=== PATIENT | female | born 1970 | race Caucasian/White ===

== ENCOUNTER 2018-12-29 08:51 | Emergency (ER) | payer OTHER, SELFPAY ==
[2018-12-29 09:10] VITALS: BP 121/77; PULSE 86; RESP 13; TEMP 37; O2SAT 97
[2018-12-29 09:18] VITALS: BP 121/77; PULSE 86; RESP 13; TEMP 37; O2SAT 97
--- NOTE | 2018-12-29 09:31 | ED_ITS ---
HPI - URI/Sore Throat General Chief Complaint: Upper Respiratory Symptoms Stated Complaint: Sore throat x4 days Time Seen by Provider: 12/29/18 09:23 Source: patient Mode of arrival: Ambulatory Limitations: no limitations History of Present Illness HPI Narrative: Patient is a 48-year-old female who presents with sore throat hoarse voice, cough ongoing for the last 3-4 days. She has been chilled but not having any fevers she denies any shortness of breath. She really feels like her throat is very sore painful to swallow. She has lost her voice as well. Sometime she is coughing spells but does not cough anything up. She feels like she is wheezing she has a history of smoking or MD Complaint: cough and sore throat Onset (ago): day(s) Duration: constant and progressively worsening Relieving factors: nothing Description of mucous: clear Able to tolerate fluids by mouth: Yes Associated symptoms: voice changes (hoarce) Related Data Home Medications Medication Instructions Recorded Confirmed VIT#96/FERROUS FUM/FA 1 tab PO QDAY #0 tab 10/12/15 ( Vitamin) Review of Systems Review of Systems ROS Unobtainable: All systems reviewed & are unremarkable except as noted in HPI and below Constitutional Constitutional: Denies chills, Denies fever(s), Denies lethargy and Denies weakness ENT Ears, Nose, Mouth, and Throat: Reports sore throat Cardiovascular Cardiovascular: Denies chest pain, Denies irregular heart rhythm, Denies lightheadedness, Denies palpitations, Denies dyspnea and Denies orthopnea Respiratory Respiratory: Reports as per HPI, Denies chest congestion, Reports cough, Denies dyspnea and Reports wheezing Gastrointestinal Gastrointestinal: Denies abdominal pain, Denies change in bowel habits, Denies diarrhea, Denies nausea and Denies vomiting Genitourinary Genitourinary: Denies hematuria, Denies flank pain, Denies urinary incontinence and Denies urinary urgency Musculoskeletal Musculoskeletal: Denies back pain, Denies muscle weakness, Denies numbness and Denies tingling Integumentary/Breasts Skin/Breast: Denies pruritus, Denies erythema, Denies rash and Denies wounds Neurologic Neurologic: Denies numbness, Denies tingling and Denies weakness Endocrine Endocrine: Denies palpitations Allergic/Immunologic Allergic/Immunologic: Reports wheezing Patient History Medical History Patient denies medical problems (Acute) Surgical History Status post hysterectomy Family History (Updated 10/12/15 @ 00:00 by Conversion Provider) Brother Age: 51 Heart abnormality Essential hypertension Father Age: 79 Kidney stones History of dental problems Mother Age: 69 Fibromyalgia Cancer Essential hypertension Grandfather Essential hypertension Grandmother Essential hypertension Social History Smoking Status: Never smoker Family History Brother Age: 51 Heart abnormality Essential hypertension Father Age: 79 Kidney stones History of dental problems Mother Age: 69 Fibromyalgia Cancer Essential hypertension Grandfather Essential hypertension Grandmother Essential hypertension Social History Smoking Status: Never smoker Substance Use Type: does not use Exam Initial Vital Signs Initial Vital Signs: Vital Signs Temperature 98.6 F 12/29/18 09:10 Pulse Rate 86 12/29/18 09:10 Respiratory Rate 13 12/29/18 09:10 Blood Pressure 121/77 12/29/18 09:10 Pulse Oximetry 97 12/29/18 09:10 GENERAL: Well-appearing, well-nourished and in no acute distress. HEENT: Head atraumatic,EOMI, pupils reactive, face symmetric, moist mucous membranes PHARYNX: No tonsillar exudate no erythema no uvula deviation no cervical lymphadenopathy managing own secretions EARS: Tympanic membranes normal no erythema CARDIOVASCULAR: Regular rate and rhythm without murmurs, rubs or gallops. RESPIRATORY: Breath sounds equal bilaterally, no wheezes rales or rhonchi. ABDOMEN: Soft, nontender. Normoactive bowel sounds all 4 quadrants. No guarding or rebound. EXTREMITIES: Normal range of motion, no clubbing or edema. Neurovascularly intact NEUROLOGICAL: Alert and oriented x4.Normal gait and speech. SKIN: Warm, dry, no laceration, no petechiae, no rashes or lesions. Course Orders Ordered: Discontinued Medications Albuterol (Ventolin) 2.5 mg INH NOW ONE Stop: 12/29/18 09:31 Last Admin: 12/29/18 09:36 Dose: 2.5 mg Documented by: STOBEY Ketorolac Tromethamine (Toradol) 30 mg IM NOW ONE Stop: 12/29/18 09:31 Vital Signs Vital signs: Vital Signs - 8 hr 12/29/18 09:10 12/29/18 09:18 12/29/18 09:40 Temperature 98.6 F 98.6 F Pulse Rate 86 86 77 Respiratory Rate 13 13 18 Blood Pressure 121/77 121/77 Blood Pressure [Right Arm] Pulse Oximetry 97 97 97 12/29/18 10:13 Temperature Pulse Rate 78 Respiratory Rate 15 Blood Pressure Blood Pressure [Right Arm] 120/86 Pulse Oximetry 98 MDM - URI/Sore Throat Lab Data Attestation: I reviewed the patient's lab results. Labs: Point of Care Testing Rapid Strep A Negative MDM Narrative Medical decision making narrative: The patient likely has upper respiratory viral infection. Strep is negative. She is not toxic. She was offered a shot of Toradol to help with the pain however she refused. She did not get much relief with albuterol. At this time no indication for antibiotics. Discharge Plan Departure Patient Disposition: Home Clinical Impression: Acute viral syndrome Discharge Date/Time: 12/29/18 10:18 Instructions: Laryngitis, DI for Viral Pharyngitis Activity Restrictions/Additional Instructions: *You have been diagnosed with laryngitis *What to do: At this time no antibiotic indicated, recommend fluids and rest *Continue to take medications as directed Ibuprofen 800 mg every 8 hours with food Tylenol 1000 mg every 6 hours if needed for pain or fever (max 4000 mg in 24 hours) *Follow up with your primary care provider in 2-3 days *Return to ER if you should have increasing shortness of breath, chest pain, difficulty or inability to swallow or any new, worsening or concerning symptoms Prescriptions: No Action VIT#96/FERROUS FUM/FA ( Vitamin) 1 tab PO QDAY Qty: 0 RF: 0 Referrals: [facility] [Outside]
[2018-12-29] MEDS: ALBUTEROL 2.5 MG/3 ML NEB (ADULT) INH (09:36)
[2018-12-29 09:40] VITALS: PULSE 77; RESP 18; O2SAT 97
[2018-12-29 10:13] VITALS: BP 120/86; PULSE 78; RESP 15; O2SAT 98
== END 2018-12-29 10:18 | disposition home or self-care (01) ==
PROVIDERS: Emergency Provider Emergency Medicine
DX: B34.9 Viral infection, unspecified (principal); R05 Cough; J02.9 Acute pharyngitis, unspecified
CPT/HCPCS: 87880; 94640; 99282; 99283; J1885; J7613

== ENCOUNTER 2023-01-04 13:12 | Emergency (ER) | payer OTHER, SELFPAY ==
[2023-01-04] VITALS (7 sets, daily range): BP systolic 119–167; BP diastolic 68–89; PULSE 78–90; RESP 16–20; TEMP 36.9–37.1; O2SAT 97–98; BMI 32.7
--- NOTE | 2023-01-04 15:09 | DI.RAD.S_ITS ---
PROCEDURE: XR ABDOMEN MIN 2V INDICATIONS: abd pain, hx constipation TECHNIQUE: 2 views of the abdomen were acquired. COMPARISON: None. FINDINGS: Surgical changes and devices: None. Bowel: No pneumoperitoneum. The bowel gas pattern is normal. Minimal scattered stool. Soft tissues: No masses; visualized solid organ contours appear normal in size. No suspicious abdominal calcifications. Bones: No suspicious bony abnormalities. IMPRESSION: No constipation. Dictated by: Melida Harmon M.D. on 01/04/2023 at 16:14 Approved by: Melida Harmon M.D. on 01/04/2023 at 16:15
[2023-01-04 18:04] LABS: Alanine Aminotransferase 32 IU/L (<35); Albumin 4.7 g/dL (3.5-5.0); Albumin Globulin Ratio 1.3 (1.0-2.8); Alkaline Phosphatase 72 U/L (38-126); Aspartate Aminotransferase 26 IU/L (14-36); BUN Creatinine Ratio 21.9 (6-22); Bilirubin Total 0.6 mg/dL (0.2-1.3); Blood Urea Nitrogen 14 mg/dL (7-17); Calcium 9.4 mg/dL (8.4-10.2); Carbon Dioxide 24 mmol/L (22-32); Chloride 102 mmol/L (98-107); Estimated Glomerular Filt Rate > 60 mL/min (>60); Globulin 3.5 g/dL (1.7-4.1); Glucose 92 mg/dL (70-100); HEMOLYSIS < 15 (0-50); Lipase 57 U/L (23-300); Potassium 3.6 mmol/L (3.4-5.1); Sodium 137 mmol/L (137-145); Total Protein 8.2 g/dL (6.3-8.2)
[2023-01-04 18:09] LABS: Add Manual Diff / Slide Review NO; Basophils Absolute Auto 100 /uL (0-100); Basophils Percent Auto 0.5 % (0-2); Eosinophils Absolute Auto 100 /uL (0-450); Eosinophils Percent Auto 1.2 % (2-4); Hematocrit 42.8 % (36-46); Hemoglobin 14.9 g/dL (12.0-16.0); Lymphocytes Absolute Auto 2400 /uL (1100-4500); Mean Corpuscular HGB Conc 34.9 % (30-36); Mean Corpuscular Volume 86.1 fL (80-100); Monocytes Absolute Auto 600 /uL (0-900); Neutrophils Absolute Auto 8200 /uL (1500-7000); Neutrophils Percent Auto 72.3 % (50-75); Platelet Count 380 X10^3/uL (150-400); Red Blood Cell Count 4.96 X10^6/uL (4.0-5.2); Red Cell Distribution Width 13.7 % (11.6-14.8); White Blood Cell Count 11.3 X10^3/uL (4.5-11.0)
--- NOTE | 2023-01-04 18:11 | ED.GENADULT ---
HPI - General Adult General Chief complaint: Abdominal Pain Stated complaint: constipation/diarrhea/abd pain/side pain/ Time Seen by Provider: 01/04/23 17:55 Source: patient Mode of arrival: Ambulatory History of Present Illness HPI narrative: 52-year-old female. No prior abdominal surgeries. Has had issues with diarrhea and constipation off and on for the past several months. She is also had some issues with upper abdominal pain that can be associated with the diarrhea. No fevers. Today she had the upper abdominal pain but it was worse than normal and also radiated to her back. No vomiting. She is an appointment on Monday with her primary doctor. At the time my exam her symptoms have improved from its maximal intensity earlier in the day but not completely gone. It is worse with palpation. No urinary symptoms. No symptoms. Related Data Home Medications Medication Instructions Recorded Confirmed VIT#96/FERROUS FUM/FA 1 tab PO QDAY #0 tabs 10/12/15 ( Vitamin) Allergies Allergy/AdvReac Type Severity Reaction Status Date / Time phenobarbital AdvReac Seizure Verified 01/04/23 14:00 Review of Systems Constitutional Constitutional: Reports system reviewed and no additional complaints, except as documented Gastrointestinal Gastrointestinal: Reports system reviewed and no additional complaints, except as documented Genitourinary Genitourinary: Reports system reviewed and no additional complaints, except as documented Musculoskeletal Musculoskeletal: Reports system reviewed and no additional complaints, except as documented Neurologic Neurologic: Reports system reviewed and no additional complaints, except as documented Hematologic/Lymphatic On Anticoagulants: No Patient History Medical History Patient denies medical problems Surgical History Status post hysterectomy Family History Brother Age: 55 Heart abnormality Essential hypertension Father Age: 83 Kidney stones History of dental problems Mother Age: 73 Fibromyalgia Cancer Essential hypertension Grandfather Essential hypertension Grandmother Essential hypertension Social History Smoking Status: Never smoker Smoking Status: Never smoker Substance Use Type: does not use Exam Initial Vital Signs Initial Vital Signs: Vital Signs Temperature 98.8 F 01/04/23 13:55 Pulse Rate 84 01/04/23 13:55 Respiratory Rate 20 10/25/23 13:55 Blood Pressure 167/89 H 01/04/23 13:55 Pulse Oximetry 97 01/04/23 13:55 Oxygen Delivery Method Room Air 01/04/23 13:55 Const General: cooperative, comfortable and No ill appearing HENNJ Head: normal to inspection and normocephalic Resp Effort & Inspection: normal respiratory effort Auscultation: clear to auscultation bilaterally Cardio Rate: regular rate GI Inspection: normal to inspection and non-distended Palpation: soft, No firm, No guarding and tender Back/Spine/Pelvis Back: No CVA tenderness Neuro General: patient alert, patient awake and moves all extremities Extrem General: capillary refill normal Course Orders Ordered: ED Orders 01/04/23 15:09 XR abdomen min 2V Stat 01/04/23 17:45 Complete Blood Count AUTO DIFF Stat Comprehensive Metabolic Panel Stat Lipase Stat 01/04/23 18:11 CT abdomen pelvis w con Stat Discontinued Medications Ondansetron HCl (Ondansetron 4 Mg Odt) 4 mg PO NOW PRN PRN Reason: Nausea And Vomiting Ondansetron HCl (Ondansetron 4 Mg/2 Ml Inj) 4 mg IV NOW PRN PRN Reason: Nausea And Vomiting Vital Signs Vital signs: Vital Signs - 8 hr 01/04/23 17:37 01/04/23 17:37 01/04/23 18:27 Temperature Pulse Rate 90 84 Respiratory Rate 16 Blood Pressure 137/77 Pulse Oximetry 98 Oxygen Delivery Method Room Air 01/04/23 18:30 01/04/23 18:49 01/04/23 18:49 Temperature Pulse Rate 78 80 Respiratory Rate Blood Pressure 133/74 Pulse Oximetry 97 98 Oxygen Delivery Method 01/04/23 19:00 01/04/23 19:00 01/04/23 19:28 Temperature 98.4 F Pulse Rate 86 Respiratory Rate Blood Pressure 123/68 119/71 Pulse Oximetry 97 Oxygen Delivery Method 01/04/23 19:28 Temperature Pulse Rate 81 Respiratory Rate Blood Pressure Pulse Oximetry 97 Oxygen Delivery Method Medical Decision Making Lab Data Lab results reviewed: Yes I reviewed the patient's lab results. 01/04/23 17:45 01/04/23 17:45 Labs: Lab Results 01/04/23 Range/Units 17:45 WBC 11.3 H (4.5-11.0) X10^3/uL RBC 4.96 (4.0-5.2) X10^6/uL Hgb 14.9 (12.0-16.0) g/dL Hct 42.8 (36-46) % MCV 86.1 (80-100) fL MCH 30.0 (26-34) PG MCHC 34.9 (30-36) % RDW 13.7 (11.6-14.8) % Plt Count 380 (150-400) X10^3/uL Neut % (Auto) 72.3 (50-75) % Lymph % (Auto) 21.0 L (25-40) % Addison % (Auto) 5.0 (3-14) % Eos % (Auto) 1.2 L (2-4) % Baso % (Auto) 0.5 (0-2) % Neut # (Auto) 8200 H (4501-5084) /uL Lymph # (Auto) 2400 (6347-6414) /uL Addison # (Auto) 600 (0-900) /uL Eos # (Auto) 100 (0-450) /uL Baso # (Auto) 100 (0-100) /uL Sodium 137 (137-145) mmol/L Potassium 3.6 (3.4-5.1) mmol/L Chloride 102 (98-107) mmol/L Carbon Dioxide 24 (22-32) mmol/L BUN 14 (7-17) mg/dL Creatinine 0.64 (0.52-1.04) mg/dL Estimated GFR > 60 (>60) mL/min BUN/Creatinine Ratio 21.9 (6-22) Glucose 92 (70-100) mg/dL Calcium 9.4 (8.4-10.2) mg/dL Total Bilirubin 0.6 (0.2-1.3) mg/dL AST 26 (14-36) IU/L ALT 32 (<35) IU/L Alkaline Phosphatase 72 (38-126) U/L Total Protein 8.2 (6.3-8.2) g/dL Albumin 4.7 (3.5-5.0) g/dL Globulin 3.5 (1.7-4.1) g/dL Albumin/Globulin Ratio 1.3 (1.0-2.8) Lipase 57 (23-300) U/L Urine Dip Bedside Urine Glucose Negative Bedside Urine Bilirubin - Negative Bedside Urine Ketone - Negative Urine Specific Merlin 1.015 Bedside Urine Occult Blood - Negative Bedside Urine pH 5.5 Bedside Urine Protein - Negative Bedside Urine Urobilinogen - Negative Bedside Urine Nitrite - Negative Bedside Urine Leukocytes - Negative Esterase Point of care testing: Urine Dip Bedside Urine Glucose Negative Bedside Urine Bilirubin - Negative Bedside Urine Ketone - Negative Urine Specific Merlin 1.015 Bedside Urine Occult Blood - Negative Bedside Urine pH 5.5 Bedside Urine Protein - Negative Bedside Urine Urobilinogen - Negative Bedside Urine Nitrite - Negative Bedside Urine Leukocytes - Negative Esterase Imaging Data Abdominal x-ray: Radiologist's Impression: PROCEDURE: XR ABDOMEN MIN 2V INDICATIONS: abd pain, hx constipation TECHNIQUE: 2 views of the abdomen were acquired. COMPARISON: None. FINDINGS: Surgical changes and devices: None. Bowel: No pneumoperitoneum. The bowel gas pattern is normal. Minimal scattered stool. Soft tissues: No masses; visualized solid organ contours appear normal in size. No suspicious abdominal calcifications. Bones: No suspicious bony abnormalities. IMPRESSION: No constipation. CT scan - abdomen/pelvis: Radiologist's Impression: PROCEDURE: CT ABDOMEN PELVIS W CON INDICATIONS: upper abd pain TECHNIQUE: After the administration of IV contrast, axial sections were acquired from the lung bases to the pubic symphysis. Coronal and sagittal reformats were performed. For radiation dose reduction, the following was used: automated exposure control, adjustment of mA and/or kV according to patient size. COMPARISON: [facility], , XR ABDOMEN MIN 2V, 01/04/2023, 15:18. FINDINGS: Image quality: Excellent. Lung bases: The disc height and disk signal are well-preserved. Heart: No significant findings. ABDOMEN: Liver: Along the posterior aspect of the right liver, there is a low-density lesion seen, with peripheral puddling of contrast, as on series 2, image 21, measuring 4 cm. Gallbladder: Unremarkable. Biliary ducts: Unremarkable. Pancreas: Unremarkable. Spleen: Unremarkable. Incidental note is made of an accessory splenule along the hilum of the primary spleen. Adrenal Glands: Unremarkable. Kidneys and Ureters: Unremarkable. Stomach and Bowel: Stomach, small bowel loops, and colon are unremarkable. Peritoneum: No abnormal intraperitoneal fluid. No free air. Ventral Wall: No hernia. Abdominal Nodes: No retroperitoneal or mesenteric adenopathy by size criteria. Vessels: Aorta and inferior vena cava are normal in size. PELVIS: Pelvic Organs: This patient is status post hysterectomy. No adnexal masses are seen. Bladder: Unremarkable. Pelvic Nodes: No enlarged lymph nodes. Miscellaneous: No inguinal hernias are seen. Bones: Mild levoconvex scoliotic curvature is noted. IMPRESSION: A cause of upper abdominal pain is not seen on these images. Additional findings: Small hiatal hernia 4 cm right liver hemangioma Accessory splenule Levoconvex scoliotic curvature Hysterectomy MDM Narrative Medical decision making narrative: Patient does have a benign abdominal exam. Labs are unremarkable. CT scan is unremarkable. Her symptoms have been going on for the past month or longer there does worse than today. She is never had a colonoscopy or upper endoscopy. No indication for admission to the hospital. No indication for surgical consultation. Will discharge patient home to follow-up with her primary doctor at her regularly scheduled appointment on Monday. No change in any medications. She was given return precautions. She expressed understanding and agreement. Discharge Plan Departure Patient Disposition: Home Clinical Impression: Abdominal pain Instructions: DI for Abdominal Pain-Adult Activity Restrictions/Additional Instructions: I do recommend that you keep your appointment that you already have scheduled on Monday with your primary doctor. Talk with your primary doctor about the indications for a referral to see GI to discuss the indications for a colonoscopy/upper endoscopy. Return to the emergency department for new or worsening symptoms. Prescriptions: No Action VIT#96/FERROUS FUM/FA ( Vitamin) 1 tab PO QDAY Qty: 0 Referrals: Amparo Marks ARNP [Primary Care Provider] - Stand Alone Forms: Patient Portal/API
== END 2023-01-04 19:37 | disposition home or self-care (01) ==
PROVIDERS: Emergency Medicine; Emergency Provider Emergency Medicine; PCP Nurse Practitioner
DX: R10.9 Unspecified abdominal pain (principal)
CPT/HCPCS: 36415; 74019; 74177; 80053; 81003; 83690; 85025; 99284; Q9967

== ENCOUNTER → 2023-05-01 15:57 | Outpatient (CLI) | payer OTHER, SELFPAY ==
--- NOTE | 2023-05-01 15:58 | DI.MG.S_ITS ---
BILATERAL DIGITAL SCREENING MAMMOGRAM 3D/2D WITH CAD: 05/01/2023 CLINICAL: Routine screening. Baseline exam. No prior exams were available for comparison. Both breasts are heterogeneously dense, which may obscure small masses (category c / 51-75% glandular tissue). Current study was also evaluated with a Computer Aided Detection (CAD) system. No significant masses, calcifications, or other findings are seen in either breast. IMPRESSION: NEGATIVE There is no mammographic evidence of malignancy. A 1 year screening mammogram is recommended. Based on the Tyrer Cuzick model (a risk assessment model) the patient's lifetime risk is 10.6% and her 10 year risk is 2.7%. According to the ACR, ACS, and NCCN guidelines, an annual breast MRI exam along with mammogram is recommended if the patient's lifetime risk is 20% or greater. This exam was interpreted at Station ID: [id number]. NOTE: For mammograms, a report in lay terms will be sent to the patient. Approximately 15% of breast malignancies will not be visualized mammographically. In the management of a palpable breast mass, a negative mammogram must not discourage biopsy of a clinically suspicious lesion. Electronically Signed By: Mari Albarran M.D., PH.D megan/isiah:05/02/2023 17:30:23 letter sent: Normal Exam ACR BI-RADS Category 1: Negative [id number]
== END ==
LOC: MAMMO 15:57
PROVIDERS: PCP Family Medicine; Referring Provider Family Medicine; Visit Provider Family Medicine
DX: Z12.31 Encounter for screening mammogram for malignant neoplasm of breast (principal); R92.333 Mammographic heterogeneous density, bilateral breasts
CPT/HCPCS: 77063; 77067

== ENCOUNTER → 2024-04-23 06:33 | Outpatient (CLI) | payer OTHER, SELFPAY ==
[2024-04-23 07:47] LABS: Add Manual Diff / Slide Review NO; Basophils Absolute Auto 100 /uL (0-100); Basophils Percent Auto 0.7 % (0-2); Eosinophils Absolute Auto 100 /uL (0-450); Eosinophils Percent Auto 1.3 % (2-4); Hematocrit 44.8 % (36-46); Hemoglobin 15.4 g/dL (12.0-16.0); Lymphocytes Absolute Auto 2100 /uL (1100-4500); Lymphocytes Percent Auto 20.4 % (25-40); Mean Corpuscular HGB Conc 34.4 % (30-36); Mean Corpuscular Hemoglobin 30.4 PG (26-34); Mean Corpuscular Volume 88.4 fL (80-100); Monocytes Absolute Auto 400 /uL (0-900); Monocytes Percent Auto 4.3 % (3-14); Neutrophils Absolute Auto 7500 /uL (1500-7000); Neutrophils Percent Auto 73.3 % (50-75); Platelet Count 382 X10^3/uL (150-400); Red Blood Cell Count 5.07 X10^6/uL (4.0-5.2); White Blood Cell Count 10.2 X10^3/uL (4.5-11.0)
[2024-04-23 08:24] LABS: Alanine Aminotransferase 43 IU/L (<35); Albumin 4.8 g/dL (3.5-5.0); Alkaline Phosphatase 69 U/L (38-126); Aspartate Aminotransferase 34 IU/L (14-36); BUN Creatinine Ratio 21.7 (6-22); Bilirubin Total 0.6 mg/dL (0.2-1.3); Blood Urea Nitrogen 15 mg/dL (7-17); Carbon Dioxide 24 mmol/L (22-32); Chloride 104 mmol/L (98-107); Cholesterol 192 mg/dL (140-199); Estimated Glomerular Filt Rate > 60 mL/min (>60); Globulin 2.4 g/dL (1.7-4.1); Glucose 89 mg/dL (70-100); HDL Cholesterol 46 mg/dL (40-60); HEMOLYSIS < 15 (0-50); LDL Cholesterol Calculated 123 mg/dL (<100); Potassium 4.1 mmol/L (3.4-5.1); Sodium 137 mmol/L (137-145); Total Protein 7.2 g/dL (6.3-8.2); Triglycerides 113 mg/dL (35-150)
[2024-04-23 08:52] LABS: TSH w/ Reflex to FT4 1.96 uIU/mL (0.47-4.68)
== END ==
PROVIDERS: PCP Family Medicine; Referring Provider Family Medicine; Visit Provider Family Medicine
DX: I50.9 Heart failure, unspecified (principal); K58.9 Irritable bowel syndrome, unspecified; C56.9 Malignant neoplasm of unspecified ovary; Z78.0 Asymptomatic menopausal state; G43.909 Migraine, unspecified, not intractable, without status migrainosus
CPT/HCPCS: 36415; 80053; 80061; 84443; 85025

== ENCOUNTER → 2024-05-06 08:53 | Outpatient (CLI) | payer OTHER, SELFPAY ==
--- NOTE | 2024-05-06 08:54 | DI.MG.S_ITS ---
BILATERAL DIGITAL SCREENING MAMMOGRAM 3D/2D WITH CAD: 05/06/2024 CLINICAL: Routine screening. Comparison is made to exam dated: 05/01/2023 mammogram - [facility]. The breasts are heterogeneously dense, which may obscure small masses (category c / 51-75% glandular tissue). Current study was also evaluated with a Computer Aided Detection (CAD) system. No significant masses, calcifications, or other findings are seen in either breast. There has been no significant interval change. IMPRESSION: NEGATIVE There is no mammographic evidence of malignancy. A 1 year screening mammogram is recommended. Based on the Tyrer Cuzick model (a risk assessment model) the patient's lifetime risk is 10.0% and her 10 year risk is 2.7%. According to the ACR, ACS, and NCCN guidelines, an annual breast MRI exam along with mammogram is recommended if the patient's lifetime risk is 20% or greater. This exam was interpreted at Station ID: [id number]. NOTE: For mammograms, a report in lay terms will be sent to the patient. Approximately 15% of breast malignancies will not be visualized mammographically. In the management of a palpable breast mass, a negative mammogram must not discourage biopsy of a clinically suspicious lesion. Electronically Signed By: Thomas wells/isiah:05/09/2024 18:48:11 letter sent: Normal Exam ACR BI-RADS Category 1: Negative
== END ==
PROVIDERS: PCP Family Medicine; Referring Provider Family Medicine; Visit Provider Family Medicine
DX: Z12.31 Encounter for screening mammogram for malignant neoplasm of breast (principal); R92.333 Mammographic heterogeneous density, bilateral breasts
CPT/HCPCS: 77063; 77067

== ENCOUNTER → 2024-06-25 07:15 | Outpatient (CLI) | payer OTHER, SELFPAY ==
[2024-06-25 08:14] LABS: COVID-19 CEPHEID 4-PLEX PCR Negative (Negative); Influenza A - CEPHEID Flu A NEGATIVE (NEGATIVE); Influenza B - CEPHEID Flu B NEGATIVE (NEGATIVE); Respiratory Syncytial Virus Negative (Negative)
== END ==
PROVIDERS: PCP Family Medicine; Visit Provider Nurse Practitioner Family
DX: J02.9 Acute pharyngitis, unspecified (principal); R05.1 Acute cough
CPT/HCPCS: 0241U; 87070

== ENCOUNTER → 2024-06-25 07:33 | Outpatient (CLI) | payer OTHER, SELFPAY ==
--- NOTE | 2024-06-25 07:34 | DI.RAD.S_ITS ---
PROCEDURE: XR CHEST 2V INDICATIONS: Cough TECHNIQUE: 2 views of the chest were acquired. COMPARISON: None. FINDINGS: Heart, mediastinum and pulmonary vascular: Heart is normal in size and configuration. Mediastinum is unremarkable. Pulmonary vascular is normal. Lungs: Clear Pleural spaces: Normal-no effusions or pneumothorax. Bones and soft tissues: Normal IMPRESSION: Normal chest. Dictated by: Abraham Landin M.D. on 06/25/2024 at 8:52 Approved by: Abraham Landin M.D. on 06/25/2024 at 8:53
== END ==
PROVIDERS: PCP Family Medicine; Referring Provider Nurse Practitioner Family; Visit Provider Nurse Practitioner Family
DX: R05.9 Cough, unspecified (principal)
CPT/HCPCS: 0241U; 71046; 87070

== ENCOUNTER → 2024-07-20 08:11 | Outpatient (CLI) | payer OTHER, SELFPAY | PROVIDERS: PCP Family Medicine; Referring Provider Family Medicine; Visit Provider Physician Assistant Surgical | DX: R30.0 Dysuria (principal) | CPT/HCPCS: 87077; 87086; 87210 ==

== ENCOUNTER → 2024-07-22 06:06 | Outpatient (CLI) | payer OTHER, SELFPAY ==
[2024-07-22 08:14] LABS: Alanine Aminotransferase 23 IU/L (<35); Albumin 4.8 g/dL (3.5-5.0); Alkaline Phosphatase 82 U/L (38-126); Aspartate Aminotransferase 22 IU/L (14-36); BUN Creatinine Ratio 20.9 (6-22); Bilirubin Total 0.7 mg/dL (0.2-1.3); Blood Urea Nitrogen 14 mg/dL (7-17); Calcium 10.1 mg/dL (8.4-10.2); Carbon Dioxide 24 mmol/L (22-32); Chloride 103 mmol/L (98-107); Estimated Glomerular Filt Rate > 60 mL/min (>60); Globulin 2.4 g/dL (1.7-4.1); Glucose 85 mg/dL (70-99); HEMOLYSIS < 15 (0-50); Potassium 4.9 mmol/L (3.4-5.1); Sodium 138 mmol/L (137-145); Total Protein 7.2 g/dL (6.3-8.2)
== END ==
LOC: LAB 06:08
PROVIDERS: PCP Family Medicine; Referring Provider Family Medicine; Visit Provider Family Medicine
DX: I50.9 Heart failure, unspecified (principal)
CPT/HCPCS: 36415; 80053; 86900; 86901

== ENCOUNTER → 2024-07-29 08:49 | Outpatient (CLI) | payer OTHER, SELFPAY | LOC: LAB 09:16 | PROVIDERS: PCP Family Medicine; Visit Provider Family Medicine | DX: N89.8 Other specified noninflammatory disorders of vagina (principal) | CPT/HCPCS: 87210 ==